=== PATIENT | male | born 1960 ===

== ENCOUNTER 2024-11-29 06:28 | Day surgery (SDC) | payer BC, SELFPAY ==
[2024-11-16 12:50] VITALS: BMI 27.0
[2024-11-29] VITALS (12 sets, daily range): BP systolic 111–153; BP diastolic 67–111; BMI 27.0
--- NOTE | 2024-11-29 06:53 | W.SUR.PREOP ---
Pre-Operative Surgical Note
-
I have examined this patient prior to the performance of the scheduled procedure.
The patient's condition is unchanged from the time of the current History and
Physical and the patient is able to undergo the scheduled procedure.
[2024-11-29] MEDS: TYLENOL 1000 MG PO (08:13)
[2024-11-29] MEDS: NORMOSOL-R/PLASMALYTE-A 1000 IV (08:15)
--- NOTE | 2024-11-29 11:32 | W.IMMPOSTOP ---
Surgical Immed Post Op Note
-
Primary Surgeon: Rip Johnson MD
Assisting Surgeon: None
Pre-op Diagnosis: Bilateral inguinal hernias
Post-op Diagnosis: Same
Procedure Performed: Robotic bilateral inguinal hernia repairs with mesh
Anesthesia Type: General
Specimen / Cultures: Right cord lipoma, intra-abdominal mass
Estimated Blood Loss: 7 cc
Complications: None
Operative Findings: Left direct inguinal hernia, attenuated transversalis fascia imbricated and secured at coopers with a 2-0 V-Loc 180 suture. After achieving the critical view of the MPO, the left side was reinforced with a large left Bard 3D max
uncoated polypropylene mesh. On the right side the patient had a very large indirect inguinal hernia containing a significant amount of preperitoneal fat, this cord lipoma was reduced and ligated/resected using Weck clips. This was sent as
specimen #1. After achieving the critical view of the MPO on the right side, this was reinforced with a extra-large right Bard 3D max uncoated polypropylene mesh. There was an additional fatty mass identified floating in the abdomen which was
removed and sent for pathology specimen #2.
--- NOTE | 2024-11-29 11:35 | OR.RPT ---
Operative Report
Operative Report
Patient Name: Cleve Naylor
: 1960
Date of Operation: 11/29/2024
Preoperative Diagnosis: Bilateral inguinal hernias
Postoperative Diagnosis: Same
Procedure(s):
Robotic bilateral inguinal Hernia Repair with mesh, (RIVER approach)
Surgeon(s):
Dr. Johnson
Envelope Cutter(s):
MATY Patton
Anesthesia: General
Estimated Blood Loss: 7 cc
Urine Output: None
Drains/Lines/Implants: Large left, extra-large right 3D Max Bard mid weight uncoated polypropylene mesh
Specimens: Right cord lipoma, intra-abdominal fatty mass
Indication for surgery: The patient has a history of groin pain and noted on exam to have a symptomatic right inguinal hernia as well as a contralateral left inguinal Hernia on imaging. Following review of therapeutic options they have elected to
undergo a minimally invasive repair.
Operative Findings: Left direct inguinal hernia, attenuated transversalis fascia imbricated and secured at coopers with a 2-0 V-Loc 180 suture. After achieving the critical view of the MPO, the left side was reinforced with a large left Bard 3D max
uncoated polypropylene mesh. On the right side the patient had a very large indirect inguinal hernia containing a significant amount of preperitoneal fat, this cord lipoma was reduced and ligated/resected using Weck clips. This was sent as
specimen #1. After achieving the critical view of the MPO on the right side, this was reinforced with a extra-large right Bard 3D max uncoated polypropylene mesh. There was an additional fatty mass identified floating in the abdomen which was
removed and sent for pathology specimen #2.
Details of the operation:
The patient was brought to the Operating Room and placed in the supine position with the arms tucked. IV antibiotics were infused and Venodyne stockings placed. Following uneventful induction of general endotracheal anesthesia, an orogastric tube
was placed. The abdomen was prepped and draped in the usual sterile fashion. The abdomen was entered using a Veress technique which required 1 pass, pneumoperitoneum to 15 mmHg was obtained without difficulty. An 8mm trochar was passed through the
abdominal wall roughly 20 cm cephalad to the inguinal canal. We then confirmed that no inadvertent injury was made while passing the trocar or Veress needle. We then placed two additional 8 mm ports in the left upper and right upper quadrants. We
then docked the robot with a Prograsper in the left hand port and monopolar scissors in the right. The patient was noted to have bilateral inguinal hernias right much greater than left. We then began by creating a flap on the right side at the
level of the ASIS laterally working our way medially to the medial umbilical fold. Staying onto the peritoneum we were able to circumferentially dissect around the hernia sac and and peel it off of the underlying spermatic cord and testicular
vessels, taking care to preserve them. Medially we identified the midline pubis as well as Atif's ligament and ensured to dissect 2 cm below the pubic rim over the bladder. After exposure of the entire myopectineal orifice we identified and
reduced: A medium sized indirect inguinal hernia, no direct inguinal hernia, no femoral hernia, and a very large right cord lipoma which was reduced and resected, ligated at the base with 3 Weck clips. Given its size the lipoma was sent for
pathology. This was then repeated on the left side where we identified no indirect inguinal hernia, a small direct inguinal hernia which was imbricated using a 2-0 V-Loc 180 suture, no femoral hernia and only had diminutive cord lipoma which was
not sent for pathology.
After achieving the critical view of the MPO bilaterally, we fixated a large left and an extra-large right 3D max Bard soft uncoated polypropylene mesh with a 2-0 Vicryl stitch at coopers medially and superior laterally, as well as a suture in the
upper midline securing the meshes together. The flap were then closed with running 2-0 barbed Monocryl sutures. During the closure of the flap an Angiocath was inserted and 20 cc of quarter percent Marcaine was instilled. The area in the flap
cavity was then evacuated of air confirming that the mesh was flush and there were no folds. A 4 x 4 Ray-Foreign which had been placed earlier to assist with hemostasis was removed, all needles and instruments were then removed and the robot was
undocked. The abdomen was then desufflated, and pneumoperitoneum evacuated. All skin sites were then closed with 4-0 Monocryl followed by Dermabond. Counts were correct and overall, the patient tolerated the procedure well and was taken to the
Recovery Room postoperatively in stable condition.
I was the attending physician and performed the procedure with assistance of the PA above. The assistance of MATY Patton was required due to the complexity of the procedure. During the procedure Lissa assisted with port placement, instrument
and needle exchanges, and closure of the wound. I was present for all portions of the case, excluding skin closure.
Rip Johnson MD
[2024-11-29] MEDS: DILAUDID 0.5 MG IV (11:45)
[2024-11-29] MEDS: DILAUDID 0.25 MG IV ×2 (12:11→12:28)
[2024-11-29] MEDS: TORADOL 15 MG IV (13:05)
[2024-11-29] MEDS: TYLENOL 650 MG PO (13:42)
== END 2024-11-29 14:09 | disposition home or self-care (01) ==
LOC: SDS 06:28
PROVIDERS: ATTENDING PHYSICIAN Surgery; FAMILY PHYSICIAN Family Medicine
DX: K40.20 Bilateral inguinal hernia, without obstruction or gangrene, not specified as recurrent (principal)
CPT/HCPCS: 49650; 88304; 93005; C1781